=== PATIENT | female | born 1960 ===

== ENCOUNTER 2017-12-04 00:08 | Inpatient (IN) | payer OTHER ==
--- NOTE | 2017-11-29 18:41 | HISTORY AND PHYSICAL ---
DATE OF ADMISSION: December 04, 2017 IDENTIFICATION/CHIEF COMPLAINT Rose is a 57-year-old woman with the chief complaint of left knee pain. HISTORY OF PRESENT ILLNESS Patient has a history of a work-related injury which has led to progressive posttraumatic arthritis in her left knee. This has been refractory to prolonged and extensive conservative care. Surgery is indicated to relieve symptoms after failure of nonoperative measures. PAST MEDICAL HISTORY * Sleep apnea. She does use a CPAP. * Acid reflux disease. * History of AFib, but status post successful ablation. * Hypothyroidism. * Depression. PAST SURGICAL HISTORY * Cardiac ablation. * Contralateral knee replacement. * Prior knee arthroscopy. * Treatment of a wrist injury. * Treatment for broken neck. CURRENT MEDICATIONS * Wellbutrin 150 mg p.o. q.a.m., 300 mg in the p.m. * Prilosec 20 mg p.o. q.day. * Estradiol 0.5 mg p.o. q.day. * Mobic 7.5 mg p.o. b.i.d. * Klonopin 1 mg p.o. p.r.n. * Levothyroxine 0.05 mg p.o. q.day. * Vitamins. SOCIAL HISTORY Negative for tobacco use. She drinks alcohol, a couple beverages once a week, denies abuse. FAMILY HISTORY She is adopted and does not know her family history. REVIEW OF SYSTEMS Negative. PHYSICAL EXAMINATION GENERAL: This is a well-developed, well-nourished female who appears he stated age. HEENT: Normocephalic, atraumatic. NECK: Supple. LUNGS: Clear. HEART: Regular. ABDOMEN: Soft. ORTHOPEDIC EXAM: The knee is still at the end range of motion. She has an effusion present. Gross stability is good. Extensor function is intact. IMAGING Radiographs demonstrate end-stage DJD. ASSESSMENT Left knee end-stage posttraumatic arthritis, progressively painful and debilitating, refractory to conservative care. PLAN Per patient request we will proceed with total knee arthroplasty. The nature of this procedure, risks, benefits, the anticipated rehab course were reviewed. The risks include, but are not limited to , major medical or anesthetic complication, infection, neurovascular injury, blood transfusion, stiffness, scarring, fracture, tendon rupture or instability, implant loosening, migration or failure, persistent or recurrent pain, need for additional surgery and other unforeseen. She understands and wishes to proceed. A signed permit was placed in the chart. No guarantees are given or implied. [facility]
[2017-12-03 15:12] LABS: INR 1.03
[2017-12-04] VITALS (11 sets, daily range): BP systolic 95–128; BP diastolic 59–83
[~2017-12-04] VITALS: Ht 167.6 cm; Wt 111.6 kg
[~2017-12-04 00:08] MED LIST: AMOX125T10 PO; ASPI-757 PO; BUPR200T18 PO; CELE-1 PO; CLON-389 PO; DIA5 PO; ESTR-32 PO; ESTR-33 PO; FLUC100T35 PO; HYDR-385 PO; HYDR-4308 PO; LEVO25TA57 PO; LEVO50TA86 PO; LORA-630 PO; MELO-205 PO; OMEP-218 PO; OXYC-823 PO; PROG100C PO
[2017-12-04] MEDS ORDERED: VANCOMYCIN(*) 1 GM VIAL 1 GM, VANCOMYCIN HCL 0.750 GM VIAL 0.75 GM in NS(*) 0.9% 250 ML... IVPB ONE (07:45)
[2017-12-04] MEDS ORDERED: fentaNYL CITR 100 MCG/2 ML AMP ONE (12:34)
[2017-12-04] MEDS ORDERED: ONDANSETRON 4 MG/2 ML VIAL ONE (12:58)
[2017-12-04] MEDS ORDERED: PROPOFOL EMUL(*) 10MG/ML 20 ML 20 ML ONE (12:58)
[2017-12-04] MEDS ORDERED: DEXAMETHASONE SOD PHOS 10MG/ML ONE (12:58)
[2017-12-04] MEDS ORDERED: LIDOCAINE MPF 1% 5 ML VIAL ONE (12:58)
[2017-12-04] MEDS ORDERED: VANCOMYCIN 1 GM VIAL ONE (13:14)
[2017-12-04] MEDS ORDERED: LIDOCAINE/SOD BICARB 8.4% SYR ID ONE (14:00)
[2017-12-04] MEDS ORDERED: NORMOSOL R SOLN(*) 1000 ML BAG 1,000 ML IV PRN ×2 (14:00→15:05)
[2017-12-04] MEDS ORDERED: MIDAZOLAM 2 MG/2 ML VIAL IVP PRN (14:00)
[2017-12-04] MEDS ORDERED: ceFAZolin(*) 2GM/D5W 50ML 50 ML IVPB ONE (14:00)
[2017-12-04] MEDS ORDERED: FAMOTIDINE 20 MG TAB PO ONE (14:00)
[2017-12-04] MEDS ORDERED: cloNIDine EPIDUR INJ 100MCG/ML 40 MCG, ROPIVACAINE 0.5% 20 ML VIAL 25 ML, EPINEPHrine H... INJ ONE (14:00)
[2017-12-04] MEDS ORDERED: TRANEXAMIC AC 1000 MG/10ML SDV 1,000 MG in DEXTROSE 5% 50 ML BAG 50 ML IV ONE (14:00)
[2017-12-04] MEDS ORDERED: PROMETHAZINE 25 MG/ML 1 ML AMP IVP PRN (15:05)
[2017-12-04] MEDS ORDERED: BENZOCAINE/MENTHOL 1 EACH LOZG PO PRN (15:05)
[2017-12-04] MEDS ORDERED: BISACODYL 10 MG SUPP PR PRN (15:05)
[2017-12-04] MEDS ORDERED: FLUSH 10 ML SYR IVP PRN (15:05)
[2017-12-04] MEDS ORDERED: diphenhydrAMINE 50 MG/ML VIAL IVP PRN (15:05)
[2017-12-04] MEDS ORDERED: ZOLPIDEM TARTRATE 5 MG TAB PO PRN (15:05)
[2017-12-04] MEDS ORDERED: ACETAMINOPHEN 325 MG TAB PO PRN (15:05)
[2017-12-04] MEDS ORDERED: WATER STERILE IRRIG(*) 1000ML 1,000 ML ONE (15:05)
[2017-12-04] MEDS ORDERED: diphenhydrAMINE 25 MG CAP PO PRN (15:05)
--- NOTE | 2017-12-04 15:43 | RADIOLOGY IMAGING REPORT ---
FACILITY: [facility] PATIENT NAME: Thu Kerns : 1960 MR: [id number] V: [id number] EXAM DATE: ORDERING PHYSICIAN: DIEGO TOSCANO TECHNOLOGIST: [place] [facility] [place]: Thu Kerns : 1960 Visit/Account:[id number] Date of Sevice: 12/04/2017 Left knee, 2 views. HISTORY: Left total knee arthroplasty. COMPARISON: None. The articular surfaces of the distal femur, proximal tibia, and patella have been resected and replac ed with prosthetic components. The components have been secured with cement. Alignment is unremarkabl e. A fabella is present posteriorly. Air is present in the joint and anterior soft tissues. Skin clip s are present anteriorly. Slight lucencies are present between the bone and the femoral prosthesis, p robably a normal postsurgical finding. IMPRESSION: Unremarkable knee replacement. Report Dictated By: Naresh Malin MD at 12/04/2017 3:35 PM Report E-Signed By: Naresh Malin MD at 12/04/2017 3:38 PM WSN:[id number]
[2017-12-04] MEDS: APAP/HYDROCODONE 325/7.5 TAB PO PRN ×2 (16:49→23:15)
[2017-12-04] MEDS: CELECOXIB 200 MG CAP PO SCH (16:50)
--- NOTE | 2017-12-04 16:59 | Hospitalist Consultation ---
History of Present Illness Requesting Physician Dr. Harris Reason for Consult Medication Management Chief Complaint s/p left total knee replacement History of Present Illness She was admitted s/p left total knee replacement. It was reported surgery went well and without complication. History Problems: (1) Depression with anxiety Status: Chronic (2) Hypothyroid Status: Chronic (3) GERD (gastroesophageal reflux disease) Status: Chronic (4) History of hepatitis C Status: Chronic Home Meds Reported Medications Estradiol (ESTRADIOL) 1 Mg Tablet, 1 MG PO DAILY 11/28/17 Progesterone,Micronized (PROGESTERONE) 100 Mg Capsule, 2.5 MG PO DAILY, CAPSULE 11/28/17 Hydrocodone Bit/Acetaminophen (HYDROCODON-ACETAMINOPHEN 5-325) 1 Each Tablet, 1 EACH PO BID, TAB 11/28/17 Clonazepam (CLONAZEPAM) 1 Mg Tab.rapdis, 1 MG PO HS Y for ANXIETY/INSOMNIA, #6 TAB 11/28/17 Meloxicam (MELOXICAM) 7.5 Mg Tablet, 7.5 MG PO BID 11/28/17 Levothyroxine Sodium (LEVOTHYROXINE SODIUM) 50 Mcg Tablet, 50 MCG PO QDAY, TAB 11/28/17 Omeprazole Magnesium (PRILOSEC OTC) 20 Mg Tablet.dr, 1 TAB PO QDAY, TAB 08/21/16 Bupropion Hcl (WELLBUTRIN SR) 200 Mg Tablet.er, 450 MG PO QDAY, TAB 08/21/16 Discontinued Reported Medications Oxycodone Hcl (OXYCONTIN) 10 Mg Tab.er.12h, 10 MG PO Q12H, #20 TAB 09/01/16 Diazepam (VALIUM) 5 Mg Tablet, 5 MG PO Q6H Y for SPASMS, #30 TAB 09/01/16 Celecoxib (CELEBREX) 200 Mg Capsule, 200 MG PO BID, #60 CAPSULE 09/01/16 Hydrocodone Bit/Acetaminophen (NORCO 7.5-325 TABLET) 1 Each Tablet, 1-2 EACH PO Q4-6H Y for PAIN, #80 09/01/16 Levothyroxine Sodium (SYNTHROID) 25 Mcg Tablet, PO QDAY 08/21/16 Discontinued Scripts Aspirin (ASPIRIN) 325 Mg Tablet, 325 MG PO QDAY, #30 TAB Prov:BERNARD EL DO 09/01/16 Allergies: Coded Allergies: No Known Drug Allergies (Unverified , 08/21/16) Patient History: Patient reports no known family medical history. Hx Smoking: Yes (QUIT 13 + YEARS AGO) Smoking Status: Former Smoker Caffeine Intake: Coffee Caffeine/Cups Per Day: 1-3 DAY Hx Alcohol Use: Yes Hx Substance Use Disorder: No History of IV Drug Use: No Review of Systems All Systems Reviewed/Normal: Yes, Except as Noted Exam Vital Signs Vital Signs Date Time Temp Pulse Resp B/P (MAP) Pulse Ox O2 Delivery O2 Flow Rate FiO2 12/04/17 16:15 97.7 77 16 119/71 (87) 94 Nasal Cannula 6.0 General Appearance: Alert, Awake, No Acute Distress, Afebrile Neuro: No Gross deficits Cardiovascular: Regular Rate and Rhythm Respiratory: No Respiratory Distress, Clear to Auscultation GI: Abd Soft and Non-Tender Psych: Alert & Oriented X3, Appropriate Mood & Affect Assessment and Plan Problems: (1) Status post total left knee replacement Status: Acute Assessment & Plan: Followed by Dr. Harris. She will be placed on Aspirin 325mg daily post-operatively for DVT prophylaxis. (2) Hypothyroid Status: Chronic Assessment & Plan: She is on chronic treatment with Levothyroxine. (3) Depression with anxiety Status: Chronic Assessment & Plan: She is on chronic treatment with Bupropion. (4) GERD (gastroesophageal reflux disease) Status: Chronic Assessment & Plan: She is on chronic treatment with Omeprazole. She will receive Protonix while admitted. (5) History of hepatitis C Status: Chronic Venous Thromboembolism Antithrombotics Is Pt On Any Antithrombotics?: No Prophylaxis Tx Contraindicated Pharmacological Contraindicati: Surgical Contraindication KATHERIN VALDOVINOSP Dec 04, 2017 16:59
[2017-12-04] MEDS: DIAZEPAM 5 MG TAB PO PRN (18:08)
--- NOTE | 2017-12-04 21:53 | OPERATIVE REPORT 1 ---
EVENT DATE: December 04, 2017 SURGEON: Chance Harris MD ANESTHESIOLOGIST: Diego Salomon MD ANESTHESIA: General plus spinal. MACHINE ADJUSTER LEADER: Roney Taylor PA-C PREOPERATIVE DIAGNOSIS Left knee degenerative joint disease. POSTOPERATIVE DIAGNOSIS Left knee degenerative joint disease. PROCEDURE PERFORMED Left total knee arthroplasty. ESTIMATED BLOOD LOSS Minimal. DRAINS None. SPECIMENS None. COMPLICATIONS None apparent. TOURNIQUET TIME Nine minutes and then released due to a venous tourniquet. IMPLANTS USED [employer] Triathlon knee system, a 5 left PS femur, a 5 standard tibial baseplate , a 33 mm universal cemented all-polyethylene patellar button, an 11 mm PS tibial tray liner. Polyethylene is X3. INDICATIONS Rose is a 57-year-old woman who has had prior trauma to her knee resulting in meniscectomy. She has developed severe posttraumatic arthritis with pain and disability refractory to conservative care. Surgery is indicated to relieve symptoms after failure of nonoperative measures. DESCRIPTION OF PROCEDURE Patient was taken to the operating room and placed supine on the operating table. General anesthesia was induced. Antibiotics were administered IV. Spinal block was placed preoperatively by the anesthesiologist. Left lower extremity was prepped and draped in the usual sterile fashion for orthopedic surgery. Limb was exsanguinated with an Esmarch bandage. Tourniquet inflated to 275 mmHg. Midline longitudinal incision made, carried down through the skin and subcutaneous tissue to the extensor mechanism. Full-thickness flaps were carried far enough medially to allow medial parapatellar arthrotomy be performed. Patella is everted. Knee is brought into the flexed position. Fat pad, anterior horns of the menisci, and the cruciate ligaments are debrided. A subperiosteal medial released is initiated in a titrated fashion to start to balance the knee. A step drill is used to enter the distal femur. A 10-inch long alignment guide is used to engage the isthmus, cut set for 6 degrees of valgus. At this point, it is evident that the patient has a venous tourniquet, so the tourniquet is deflated, and the case continues without tourniquet. The 10 mm resection block is applied. The distal femur cut is made with an oscillating saw. AP sizing guide is applied to the distal femoral cut, positioned for 3 degrees of external rotation relative to the posterior condyles of the femur. Size 5 is selected to avoid risk of notching. The four- in-one cutting block is applied. Anterior, posterior, posterior chamfer, and anterior chamfer cuts are made respectively. PS block is applied and centered. Medial and lateral bone is removed from the box. Trial femur has nice line-to -line fit. Attention is turned to tibial preparation. The extramedullary guide is applied, positioned for varus, valgus, posterior slope, and rotation. This is set to resect 9 mm from the relatively intact lateral tibial plateau. Block is pinned. Extramedullary alignment check is made. Cuts made with an oscillating saw. After osteophyte removal and removal of posterior condylar bone, gaps are balanced and symmetric after a bit of additional medial release. The size 5 tibial baseplate provides good coverage without overhang. This is selected along with trial liner and trial femur. Knee is brought to extension. Patella is taken from a starting thickness of 22 to a residual of 14 with a patellar clamp and oscillating saw. The 33 provides optimum bony coverage without soft tissue overhang. Lug holes are drilled. Patella tracks nicely with the no-touch technique. Final tibial preparation consists of assuring appropriate rotational and translational positioning of the component. The boss is reamed. Fin is punched. Surfaces are copiously lavaged. [place] like deep flexion is adequate. Bleeding controlled to permit cementing without re- inflating the tourniquet, so all surfaces were lavaged and dried. Mixed polymethyl methacrylate was made and components cemented in a single stage. Once the cement is fully polymerized, the trial liner is removed, and the 11 PS seems ideal for filling up the gap and allowing the knee to drop to full extension without hyperextension, providing optimal soft tissue tension and balance. The tray is lavaged and dried, and the actual liner is locked into the baseplate. Joint is reduced. Arthrotomy is closed in flexion with #2 Ethibond, subcutaneous tissue with 3-0 Vicryl, skin with surgical niki. Xeroform and 4 x 4's applied as a dry, sterile dressing and compression wrap. The patient was awakened from anesthesia and taken to the recovery room in stable condition having tolerated the procedure well. Plan is for standard TKA rehab protocol. [facility]
[2017-12-05] VITALS (14 sets, daily range): BP systolic 104–136; BP diastolic 61–93; Ht 167.6 cm; Wt 111.6 kg
[2017-12-05] MEDS: VANCOMYCIN ADDVAN 1 GM in NS 250 ML IVPB SCH ×2 (01:36→13:07)
[2017-12-05] MEDS: LEVOTHYROXINE SOD 0.05 MG TAB PO SCH (05:48)
[2017-12-05] MEDS: DIAZEPAM 5 MG TAB PO PRN ×3 (05:48→17:52)
[2017-12-05] MEDS: CELECOXIB 200 MG CAP PO SCH ×2 (08:12→17:26)
[2017-12-05] MEDS: APAP/HYDROCODONE 325/7.5 TAB PO PRN ×3 (08:13→19:38)
[2017-12-05] MEDS: buPROPion XL 150 MG TABCR PO SCH (08:21)
[2017-12-05] MEDS: PANTOPRAZOLE SOD 40 MG TABEC PO SCH (08:21)
[2017-12-05] MEDS ORDERED: ASPIRIN 325 MG TAB PO SCH (09:00)
[2017-12-05] MEDS ORDERED: DILTIAZEM 5 MG/ML 5ML IVPUSH IVP ONE ×2 (10:15→10:25)
[2017-12-05] MEDS ORDERED: DILTIAZEM 5 MG/ML 5ML IVPUSH ONE (10:15)
[2017-12-05] MEDS ORDERED: NS(*) 0.9% 500 ML BAG 500 ML IV PRN (10:20)
--- NOTE | 2017-12-05 10:22 | EKG ---
FACILITY: [facility] PATIENT NAME: SAMANTHA BLEVINS : [id number] MR: [id number] V: [id number] EXAM DATE: ORDERING PHYSICIAN: RAD SINGH TECHNOLOGIST: BRIAN Guillaume Reason : A-FIB Blood Pressure : / mmHG Vent. Rate : 129 BPM Atrial Rate : 159 BPM P-R Int : 000 ms QRS Dur : 080 ms QT Int : 322 ms P-R-T Axes : 000 007 204 degrees QTc Int : 471 ms Atrial fibrillation with rapid ventricular response ST and T wave abnormality, consider inferior ischemia or digitalis effect ST and T wave abnormality, consider anterolateral ischemia or digitalis effect Abnormal ECG No previous ECGs available Confirmed by BERNARD EL ([id number]) on 12/06/2017 12:29:14 PM Referred By: FRANCISCO Confirmed By:BERNARD EL
[2017-12-05] MEDS ORDERED: ENOXAPARIN 40 MG/0.4ML SYR SC SCH (10:40)
[2017-12-05] MEDS ORDERED: DILTIAZEM HCL* 100 MG ADDVIAL 100 MG in NS(*) 0.9% 100 ML ADDVANT BAG 100 ML IV SCH (11:00)
[2017-12-05] MEDS: DILTIAZEM CD 120 MG CAPCR PO SCH (12:00)
[2017-12-05] MEDS: MAGNESIUM HYDROXIDE* 30ML UDCP PO PRN (13:44)
--- NOTE | 2017-12-05 14:37 | Hospitalist Progress Note ---
Subjective Progress Notes Subjective She has no complaints this morning. Patient Complains of: Cardiovascular: No: Chest Pain Respiratory: No: Shortness of Breath Physical Exam Vital Signs Date Time Temp Pulse Resp B/P (MAP) Pulse Ox O2 Delivery O2 Flow Rate FiO2 12/05/17 14:21 98.5 76 20 123/61 (81) 92 1.0 12/05/17 13:21 Nasal Cannula Intake and Output 12/06/17 07:00 Intake Total 6 ml Balance 6 ml Intake Oral 0 ml IV Total 6 ml General Appearance: Alert, Awake, No Acute Distress, Afebrile Neuro: No Gross deficits Cardiovascular: Regular Rate and Rhythm Respiratory: No Respiratory Distress, Clear to Auscultation GI: Soft and Non-Tender Psych: Alert & Oriented X3, Appropriate Mood & Affect Assessment and Plan Problems: (1) Status post total left knee replacement Status: Acute Assessment & Plan: Followed by Dr. Harris. She will be placed on Aspirin 325mg daily post-operatively for DVT prophylaxis. (2) Atrial fibrillation Status: Chronic Assessment & Plan: She had an episode of AFIB with RVR this morning. The patient was asymptomatic during the episode. She does have a history of atrial fibrillation with ablation in 2011. She does not take anything for rate control. She was given diltiazem push and a diltiazem drip and she converted to normal sinus rhythm. She was switched to oral diltiazem and placed on Lovenox for anticoagulation. We would like to start the patient on Xarelto. Will discuss with Dr. Harris, since this patient is post-operative. (3) Hypothyroid Status: Chronic Assessment & Plan: She is on chronic treatment with Levothyroxine. (4) Depression with anxiety Status: Chronic Assessment & Plan: She is on chronic treatment with Bupropion. (5) GERD (gastroesophageal reflux disease) Status: Chronic Assessment & Plan: She is on chronic treatment with Omeprazole. She will receive Protonix while admitted. (6) History of hepatitis C Status: Chronic Exam Sepsis Risk: No Definite Risk KATHERIN VALDOVINOS TIP TESTER Dec 05, 2017 14:37
[2017-12-06] MEDS: APAP/HYDROCODONE 325/7.5 TAB PO PRN ×3 (05:45→17:45)
[2017-12-06] MEDS: LEVOTHYROXINE SOD 0.05 MG TAB PO SCH (05:45)
[2017-12-06 05:46] VITALS: BP 113/68
[2017-12-06 07:07] VITALS: BP 106/64
[2017-12-06] MEDS ORDERED: HYDR-4308 PO (08:59)
[2017-12-06] MEDS: buPROPion XL 150 MG TABCR PO SCH (09:25)
[2017-12-06] MEDS: PANTOPRAZOLE SOD 40 MG TABEC PO SCH (09:25)
[2017-12-06] MEDS: DILTIAZEM CD 120 MG CAPCR PO SCH (09:25)
[2017-12-06] MEDS: CELECOXIB 200 MG CAP PO SCH ×2 (09:25→16:24)
[2017-12-06] MEDS: DIAZEPAM 5 MG TAB PO PRN ×2 (09:25→16:24)
[2017-12-06] MEDS: ENOXAPARIN 40 MG/0.4ML SYR SC SCH (10:17)
--- NOTE | 2017-12-06 11:07 | Hospitalist Progress Note ---
Subjective Progress Notes Subjective She has no complaints this morning. Patient Complains of: Cardiovascular: No: Chest Pain Respiratory: No: Shortness of Breath Physical Exam Vital Signs Date Time Temp Pulse Resp B/P (MAP) Pulse Ox O2 Delivery O2 Flow Rate FiO2 12/06/17 07:19 90 Nasal Cannula 1.0 12/06/17 07:11 64 12/06/17 07:07 98.8 18 106/64 (78) Intake and Output 12/07/17 07:00 Intake Total 200 ml Balance 200 ml Intake Oral 200 ml General Appearance: Alert, Awake, No Acute Distress, Afebrile Neuro: No Gross deficits Cardiovascular: Regular Rate and Rhythm Respiratory: No Respiratory Distress, Clear to Auscultation Extremities: No Edema Psych: Alert & Oriented X3, Appropriate Mood & Affect Assessment and Plan Problems: (1) Status post total left knee replacement Status: Acute Assessment & Plan: Followed by Dr. Harris. She will be placed on Aspirin 325mg daily post-operatively for DVT prophylaxis. (2) Atrial fibrillation Status: Chronic Assessment & Plan: She had an episode of AFIB with RVR 12/05. The patient was asymptomatic during the episode. She does have a history of atrial fibrillation with ablation in 2011. She was given diltiazem push and a diltiazem drip and she converted to normal sinus rhythm rather quickly. She was switched to oral diltiazem and placed on Lovenox for anticoagulation. Her insurance will not cover Xarelto, so we will start the patient on Coumadin and continue Lovenox. Dr. Harris was ok with anticoagulation post-operatively. (3) Hypothyroid Status: Chronic Assessment & Plan: She is on chronic treatment with Levothyroxine. (4) Depression with anxiety Status: Chronic Assessment & Plan: She is on chronic treatment with Bupropion. (5) GERD (gastroesophageal reflux disease) Status: Chronic Assessment & Plan: She is on chronic treatment with Omeprazole. She will receive Protonix while admitted. (6) History of hepatitis C Status: Chronic Exam Sepsis Risk: No Definite Risk KATHERIN VALDOVINOS MINE EXPLORATION ENGINEER Dec 06, 2017 11:07
[2017-12-06 11:36] VITALS: BP 124/72
[2017-12-06] MEDS: WARFARIN SOD 5 MG TAB PO SCH (12:55)
[2017-12-06 14:44] VITALS: BP 112/71
[2017-12-06 20:02] VITALS: BP 114/74
[2017-12-07] MEDS: APAP/HYDROCODONE 325/7.5 TAB PO PRN ×3 (02:56→12:19)
[2017-12-07 02:59] VITALS: BP 133/69
[2017-12-07] MEDS: LEVOTHYROXINE SOD 0.05 MG TAB PO SCH (05:56)
[2017-12-07 06:23] LABS: INR 1.01
[2017-12-07 07:14] VITALS: BP 116/67
[2017-12-07] MEDS: CELECOXIB 200 MG CAP PO SCH (08:22)
[2017-12-07] MEDS: PANTOPRAZOLE SOD 40 MG TABEC PO SCH (08:23)
[2017-12-07] MEDS: buPROPion XL 150 MG TABCR PO SCH (08:23)
[2017-12-07] MEDS: ENOXAPARIN 40 MG/0.4ML SYR SC SCH (08:23)
[2017-12-07] MEDS: DILTIAZEM CD 120 MG CAPCR PO SCH (08:23)
[2017-12-07] MEDS ORDERED: ENOX40DI8 SQ (11:14)
[2017-12-07] MEDS ORDERED: WARF-1 PO (11:14)
[2017-12-07] MEDS ORDERED: DILT120C28 PO (11:14)
--- NOTE | 2017-12-07 11:29 | Hospitalist Progress Note ---
Subjective Progress Notes Subjective She has no complaints this morning. Patient Complains of: Cardiovascular: No: Chest Pain Respiratory: No: Shortness of Breath Physical Exam Vital Signs Date Time Temp Pulse Resp B/P (MAP) Pulse Ox O2 Delivery O2 Flow Rate FiO2 12/07/17 10:36 83 12/07/17 07:28 68 12/07/17 07:27 Nasal Cannula 1.0 12/07/17 07:14 98.3 16 116/67 (83) General Appearance: Alert, Awake, No Acute Distress, Afebrile Neuro: No Gross deficits Cardiovascular: Regular Rate and Rhythm Respiratory: No Respiratory Distress, Clear to Auscultation Psych: Alert & Oriented X3, Appropriate Mood & Affect Result Diagram: 12/07/17 0604 Assessment and Plan Problems: (1) Status post total left knee replacement Status: Acute Assessment & Plan: Followed by Dr. Harris. She is now on Lovenox for DVT prophylaxis. (2) Atrial fibrillation Status: Chronic Assessment & Plan: She had an episode of AFIB with RVR 12/05. The patient was asymptomatic during the episode. She does have a history of atrial fibrillation with ablation in 2011. She was given diltiazem push and a diltiazem drip and she converted to normal sinus rhythm rather quickly. She was switched to oral diltiazem and placed on Lovenox for anticoagulation. Her insurance will not cover Xarelto, so we will start the patient on Coumadin and continue Lovenox. She will need INR checked on Sunday. She was given prescription for labs to be sent to her PCP, who will manage INR for patient. She will require referral from her PCP to see Cardiology. (3) Hypothyroid Status: Chronic Assessment & Plan: She is on chronic treatment with Levothyroxine. (4) Depression with anxiety Status: Chronic Assessment & Plan: She is on chronic treatment with Bupropion. (5) GERD (gastroesophageal reflux disease) Status: Chronic Assessment & Plan: She is on chronic treatment with Omeprazole. (6) History of hepatitis C Status: Chronic (7) WILLARD (obstructive sleep apnea) Status: Chronic Assessment & Plan: She is on chronic treatment with CPAP. She does require oxygen to go home with post-operatively. She will follow up with PCP regarding oxygen next week. Exam Sepsis Risk: No Definite Risk KATHERIN VALDOVINOS PHYSICALLY IMPAIRED TEACHER Dec 07, 2017 11:29
[2017-12-07] MEDS: WARFARIN SOD 5 MG TAB PO SCH (12:19)
[2017-12-07] MEDS: MAGNESIUM HYDROXIDE* 30ML UDCP PO PRN (12:19)
== END 2017-12-07 13:40 | disposition home or self-care (01) | DRG 470 ==
LOC: OR 00:08 → MED 16:16
PROVIDERS: ADMIT Orthopaedic Surgery; ATTEND Orthopaedic Surgery
PROC: 0SRD0J9 Replacement of Left Knee Joint with Synthetic Substitute, Cemented, Open Approach (ICD-10-PCS; principal; 2017-12-04 12:45)
PROC: 5A09357 Assistance with Respiratory Ventilation, Less than 24 Consecutive Hours, Continuous Positive Airway Pressure (ICD-10-PCS; 2017-12-05)
DX: M17.32 Unilateral post-traumatic osteoarthritis, left knee (principal); K21.9 Gastro-esophageal reflux disease without esophagitis; I48.0 Paroxysmal atrial fibrillation; G47.33 Obstructive sleep apnea (adult) (pediatric); E03.9 Hypothyroidism, unspecified; F32.9 Major depressive disorder, single episode, unspecified; E66.9 Obesity, unspecified; Z96.651 Presence of right artificial knee joint; Z86.19 Personal history of other infectious and parasitic diseases; Z99.81 Dependence on supplemental oxygen; Z68.38 Body mass index [BMI] 38.0-38.9, adult; Z87.891 Personal history of nicotine dependence
CPT/HCPCS: 36415; 82310; 82374; 82435; 82565; 82947; 84132; 84295; 84520; 85610; 86850; 86900; 86901; 93005; 97161; J0171; J0735; J1100; J1650; J1885; J2001; J2250; J2405; J2704; J2795; J3010; J3370; J3490; J7040; J7050; J7060